=== PATIENT | female | born 1965 | race Caucasian/White ===

== ENCOUNTER 2020-05-11 14:14 | Emergency (ER) | payer SELFPAY ==
--- NOTE | 2020-05-11 14:15 | DI.RAD_ITS ---
EXAM: XR HAND RT COMPLETE CLINICAL HISTORY: crush injury 4th digit. TECHNIQUE: 2D digital imaging was performed. COMPARISON: No exams were available for comparison FINDINGS: BONES: There is a comminuted markedly displaced fracture of the distal phalanx of the right ring fing er. The fracture extends proximally and may involve the DIP joint. No bony destructive lesion is se en. JOINTS: No dislocation present. SOFT TISSUE: Marked soft tissue swelling at the tip of the right ring finger with a soft tissue lacer ation present. IMPRESSION: Comminuted displaced fracture involving the distal phalanx of the right ring finger as described abov e with associated soft tissue swelling and laceration. DATA REPOSITORY: RADIATION DOSE DELIVERED:
[2020-05-11 14:21] VITALS: BP 151/88; PULSE 83; RESP 20; TEMP 36.7; O2SAT 99
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
[2020-05-11] MEDS: Bupivacaine 0.5% Pres-Free 30 ML VIAL (15:04)
--- NOTE | 2020-05-11 15:13 | DI.VRAD_ITS ---
PROCEDURE INFORMATION: Exam: XR Right Hand Exam date and time: 05/11/2020 3:08 PM Age: 55 years old Clinical indication: Other: Crush injury 4th digit TECHNIQUE: Imaging protocol: XR Right hand. Views: 3 or more views. COMPARISON: No relevant prior studies available. FINDINGS: Bones/joints: Comminuted fracture of the distal phalanx of the 4th finger. Soft tissues: Extensive soft tissue injury and laceration of the right 4th finger. IMPRESSION: Comminuted fracture of the distal phalanx of the right 4th finger with associated soft tissue swelling and laceration. Dictated and Authenticated by: Corky Salazar MD. Ordering:ROLANDO Cook MD
[2020-05-11] MEDS: Cephalexin 500 MG CAP PO (16:33)
[2020-05-11 16:35] VITALS: BP 143/84; PULSE 78; RESP 18; O2SAT 98
[2020-05-11] MEDS: Povidone-Iodine Soln. 118 ML BTL (16:38)
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
== END 2020-05-11 16:37 | disposition home or self-care (01) ==
PROVIDERS: Emergency Provider Physician Assistant
DX: S67.194A Crushing injury of right ring finger, initial encounter (principal); S62.634B Displaced fracture of distal phalanx of right ring finger, initial encounter for open fracture; S61.314A Laceration without foreign body of right ring finger with damage to nail, initial encounter; W23.1XXA Caught, crushed, jammed, or pinched between stationary objects, initial encounter
CPT/HCPCS: 12032; 90471; 99253; 99283; 73130